=== PATIENT | female | born 1960 | race Caucasian/White ===

== ENCOUNTER 2019-05-20 22:09 | Emergency (ER) | payer OTHER, SELFPAY ==
[2019-05-20 22:10] VITALS: BP 141/85; PULSE 62; RESP 16; TEMP 36.7; O2SAT 100; BMI 20.2
[2019-05-20 22:36] LABS: Add Manual Diff / Slide Review NO; Basophils Absolute Auto 100 /uL (0-100); Basophils Percent Auto 1.3 % (0-2); Eosinophils Absolute Auto 200 /uL (0-450); Eosinophils Percent Auto 4.1 % (2-4); Hematocrit 42.7 % (36-46); Hemoglobin 14.5 g/dL (12.0-16.0); Lymphocytes Absolute Auto 1500 /uL (1100-4500); Mean Corpuscular HGB Conc 33.9 % (30-36); Mean Corpuscular Volume 94.6 fL (80-100); Monocytes Absolute Auto 400 /uL (0-900); Monocytes Percent Auto 8.4 % (3-14); Neutrophils Absolute Auto 2200 /uL (1500-7000); Neutrophils Percent Auto 51.2 % (50-75); Platelet Count 193 X10^3/uL (150-400); Red Blood Cell Count 4.52 X10^6/uL (4.0-5.2); Red Cell Distribution Width 12.5 % (11.6-14.8); White Blood Cell Count 4.3 X10^3/uL (4.5-11.0)
[2019-05-20] MEDS: SODIUM CHLORIDE 0.9% 1,000 ML 150 ML IV (22:39)
[2019-05-20 22:48] LABS: D Dimer < 200 ng/mL (<230)
[2019-05-20 22:49] LABS: Alanine Aminotransferase 41 IU/L (9-52); Albumin 4.6 g/dL (3.5-5.0); Albumin Globulin Ratio 1.6 (1.0-2.8); Alkaline Phosphatase 73 U/L (38-126); Aspartate Aminotransferase 33 IU/L (14-36); BUN Creatinine Ratio 24.3 (6-22); Bilirubin Total 0.5 mg/dL (0.2-1.3); Blood Urea Nitrogen 17 mg/dL (7-17); Calcium 9.8 mg/dL (8.4-10.2); Carbon Dioxide 28 mmol/L (22-32); Chloride 100 mmol/L (98-107); Creatine Kinase 124 U/L (30-135); Estimated Glomerular Filt Rate > 60.0 mL/min (>60); Globulin 2.8 g/dL (1.7-4.1); Glucose 90 mg/dL (80-110); HEMOLYSIS < 15 (0-50); Lipase 101 U/L (23-300); Potassium 4.1 mmol/L (3.4-5.1); Sodium 137 mmol/L (137-145); Total Protein 7.4 g/dL (6.3-8.2)
[2019-05-20 22:52] LABS: Bacteria Urine None Seen; WBC Urine None Seen (0-5/HPF)
--- NOTE | 2019-05-20 22:58 | ED_ITS ---
HPI - Chest Pain General Chief Complaint: Chest Pain Stated Complaint: chest pains, thinks galbladder Time Seen by Provider: 05/20/19 22:10 Source: patient Mode of arrival: ambulatory Limitations: no limitations History of Present Illness HPI narrative: 59-year-old female nonsmoker with very benign medical history p resents with a chief complaint of vague chest pain over the past 4 days. She denies provocation or palliation and states that she feels that on occasion the symptoms radiate up into her throat. She denies associated symptoms such as dizziness, weakness or lightheadedness. She denies any worsening of symptoms with exertion. She denies diaphoresis nor nausea or vomiting. She does have some tingling in her left arm. She denies any recent long distance travel, history of clot, injury or surgery. She denies any calf swelling, pain, redness. Patient is currently training for a marathon and never gets any of these symptoms with exertion. She did change her diet to include a higher fat content but is otherwise at her normal state of health and baseline. Patient was seen and evaluated by the paramedics on [facility] and encouraged to present here for evaluation MD complaint: chest pain Onset (ago): day(s) Duration: intermittent Pain location: substernal Severity: mild Quality: aching Pain radiation: neck Relieving factors: nothing Exacerbating factors: nothing Treatments prior to arrival chest pain: none Related Data On Oral Contraceptives: No Review of Systems Constitutional Denies chills, Denies fever(s), Denies lethargy and Denies weakness Eyes Denies change in vision, Denies eye discharge, Denies irritation and Denies loss of vision ENT Ears, Nose, Mouth, and Throat: Denies change in voice, Denies neck pain and Denies sore throat Cardiovascular Reports chest pain, Denies irregular heart rhythm, Denies lightheadedness, Denies palpitations, Denies dyspnea, Denies dyspnea on exertion and Denies orthopnea Respiratory Denies cough, Denies dyspnea, Denies dyspnea on exertion and Denies wheezing Gastrointestinal Gastrointestinal: Denies abdominal pain, Denies change in bowel habits, Denies diarrhea, Denies nausea and Denies vomiting Genitourinary Denies hematuria, Denies flank pain, Denies urinary incontinence and Denies urinary urgency Musculoskeletal Denies neck pain Integumentary/Breasts Denies pruritus, Denies erythema, Denies rash and Denies wounds Neurologic Denies confusion, Denies loss of vision and Denies weakness Psychiatric Denies anxiety, Denies confusion, Denies depression, Denies homicidal ideation and Denies suicidal ideation Endocrine Denies palpitations Hematologic/Lymphatic Denies easy bruising Allergic/Immunologic Denies wheezing PFSH Social History Smoking Status: Never smoker Social History Smoking Status: Never smoker Exam Narrative Exam Narrative: GENERAL: 59-year-old female appears stated age, in no obvious or significant distress HEAD: Atraumatic. Normocephalic. No temporal or scalp tenderness. EYES: Pupils equal round and reactive. Extraocular motions intact. No scleral i cterus. No injection or drainage. ENT: Nose without bleeding, purulent drainage or septal hematoma. Throat without erythema, tonsillar hypertrophy or exudate. Uvula midline. Airway patent. NECK: Trachea midline. No JVD or lymphadenopathy. Supple, nontender, no meningeal signs. CARDIOVASCULAR: Regular rate and rhythm without murmurs, gallops, or rubs. No pain with palpation RESPIRATORY: Clear to auscultation. Breath sounds equal bilaterally. No wheezes, rales, or rhonchi. GASTROINTESTINAL: Abdomen soft, non-tender, nondistended. No hepato- splenomegaly, or palpable masses. No guarding. EXTREMITIES: No clubbing, cyanosis, or edema. No joint tenderness, effusion, or edema noted. BACK: Nontender without deformity or crepitance. No flank tenderness. NEURO: AOx3. SKIN: No rash or erythema. Initial Vital Signs Initial Vital Signs: Vital Signs Temperature 98.0 F 05/20/19 22:10 Pulse Rate 62 05/20/19 22:10 Respiratory Rate 16 05/20/19 22:10 Blood Pressure 141/85 H 05/20/19 22:10 Pulse Oximetry 100 05/20/19 22:10 Scores HEART Score Heart Score history: Slightly Suspicious Heart Score EKG: Normal Heart Score Age: 45-64 years old Heart Score risk factors: No known risk factors Heart Score troponin: < or = to normal limit Heart Score Total: 1 Course Orders Ordered: ED Orders 05/20/19 22:10 EKG-12 Lead Stat 05/20/19 22:32 Urine Microscopic Stat 08/03/19 22:33 Complete Blood Count AUTO DIFF Stat Comprehensive Metabolic Panel Stat D Dimer Stat Lipase Stat Troponin & CK Cardiac Panel Stat 05/20/19 23:08 CT angio chest abdomen Stat Sodium Chloride (Normal Saline 0.9%) 1,000 mls @ 150 mls/hr IV CONT ADAL Last Admin: 05/20/19 22:39 Dose: 150 mls/hr Vital Signs - 8 hr 05/20/19 22:10 05/21/19 00:14 Temperature 98.0 F Pulse Rate 62 56 L Respiratory Rate 16 19 Blood Pressure 141/85 H Blood Pressure [Right Arm] 123/78 Pulse Oximetry 100 100 MDM - Chest Pain Lab Data Result diagrams: 05/20/19 22:33 05/20/19 22:33 Lab Results 05/20/19 05/20/19 05/20/19 Range/Units 22:32 22:33 22:33 WBC 4.3 L (4.5-11.0) X10^3/uL RBC 4.52 (4.0-5.2) X10^6/uL Hgb 14.5 (12.0-16.0) g/dL Hct 42.7 (36-46) % MCV 94.6 (80-100) fL MCH 32.0 (26-34) PG MCHC 33.9 (30-36) % RDW 12.5 (11.6-14.8) % Plt Count 193 (150-400) X10^3/uL Neut % (Auto) 51.2 (50-75) % Lymph % (Auto) 35.0 (25-40) % [place] % (Auto) 8.4 (3-14) % Eos % (Auto) 4.1 H (2-4) % Baso % (Auto) 1.3 (0-2) % Neut # (Auto) 2200 (5812-7639) /uL Lymph # (Auto) 1500 (1615-8591) /uL [place] # (Auto) 400 (0-900) /uL Eos # (Auto) 200 (0-450) /uL Baso # (Auto) 100 (0-100) /uL D-Dimer < 200 (<230) ng/mL Sodium (137-145) mmol/L Potassium (3.4-5.1) mmol/L Chloride (98-107) mmol/L Carbon Dioxide (22-32) mmol/L BUN (7-17) mg/dL Creatinine (0.52-1.04) mg/dL Estimated GFR (>60) mL/min BUN/Creatinine Ratio (6-22) Glucose (80-110) mg/dL Calcium (8.4-10.2) mg/dL Total Bilirubin (0.2-1.3) mg/dL AST (14-36) IU/L ALT (9-52) IU/L Alkaline Phosphatase (38-126) U/L Total Creatine Kinase (30-135) U/L CK-MB (CK-2) (<2.37) ng/mL CK-MB (CK-2) Rel Index (1.5-5.0) % Troponin I (0.01-0.034) ng/mL Total Protein (6.3-8.2) g/dL Albumin (3.5-5.0) g/dL Globulin (1.7-4.1) g/dL Albumin/Globulin Ratio (1.0-2.8) Lipase (23-300) U/L Urine RBC 1-5/hpf (0-5/HPF) Urine WBC None seen (0-5/HPF) Urine Bacteria None seen (None) Ur Culture Indicated? Cult not indicated 05/20/19 Range/Units 22:33 WBC (4.5-11.0) X10^3/uL RBC (4.0-5.2) X10^6/uL Hgb (12.0-16.0) g/dL Hct (36-46) % MCV (80-100) fL MCH (26-34) PG MCHC (30-36) % RDW (11.6-14.8) % Plt Count (150-400) X10^3/uL Neut % (Auto) (50-75) % Lymph % (Auto) (25-40) % [place] % (Auto) (3-14) % Eos % (Auto) (2-4) % Baso % (Auto) (0-2) % Neut # (Auto) (1960-3328) /uL Lymph # (Auto) (2043-8274) /uL [place] # (Auto) (0-900) /uL Eos # (Auto) (0-450) /uL Baso # (Auto) (0-100) /uL D-Dimer (<230) ng/mL Sodium 137 (137-145) mmol/L Potassium 4.1 (3.4-5.1) mmol/L Chloride 100 (98-107) mmol/L Carbon Dioxide 28 (22-32) mmol/L BUN 17 (7-17) mg/dL Creatinine 0.70 (0.52-1.04) mg/dL Estimated GFR > 60.0 (>60) mL/min BUN/Creatinine Ratio 24.3 H (6-22) Glucose 90 (80-110) mg/dL Calcium 9.8 (8.4-10.2) mg/dL Total Bilirubin 0.5 (0.2-1.3) mg/dL AST 33 (14-36) IU/L ALT 41 (9-52) IU/L Alkaline Phosphatase 73 (38-126) U/L Total Creatine Kinase 124 (30-135) U/L CK-MB (CK-2) 1.77 (<2.37) ng/mL CK-MB (CK-2) Rel Index 1.4 L (1.5-5.0) % Troponin I < 0.012 (0.01-0.034) ng/mL Total Protein 7.4 (6.3-8.2) g/dL Albumin 4.6 (3.5-5.0) g/dL Globulin 2.8 (1.7-4.1) g/dL Albumin/Globulin Ratio 1.6 (1.0-2.8) Lipase 101 (23-300) U/L Urine RBC (0-5/HPF) Urine WBC (0-5/HPF) Urine Bacteria (None) Ur Culture Indicated? Urine Dip Bedside Urine Glucose Negative Bedside Urine Bilirubin - Negative Bedside Urine Ketone ++ 40 Urine Specific [place] 1.015 Bedside Urine Occult Blood +/- Bedside Urine pH 6.0 Bedside Urine Protein - Negative Bedside Urine Urobilinogen +/- 1mg Bedside Urine Nitrite - Negative Bedside Urine Leukocytes - Negative Esterase Imaging Data CT scan - chest: Radiologist's impression: No PE No dissection Mild / Moderate colonic stool burden MDM Narrative Medical decision making narrative: [place] considered but thought less likely given lack of exertional worsening of symptoms, diaphoresis, nausea or vomiting. Additionally heart score is 1, it EKG shows no acute ischemic change. Pulmonary embolism considered but thought less likely given episodic symptoms, lack of shortness of breath, no considerations regarding Virchow's triad, and use of Rigoberto Chery's PE algorithm recommended no imaging after a normal D-dimer when age corrected Dissection consdiered, but thought less likely given episodes of pain, lack of severity at onset, no radiation, and no hx of HTN, in fact patient is hypotensive historically GB/liver/pancreatic disease considered, but thought less likely given description of symptoms. No provocation or palliation. Lack of reproducible pain on exam and no biochemical markers Extensive bedside discussions with the patient on multiple occasions. She has had her questions answered to her apparent satisfaction. Additionally, she has been given extensive return precautions and demonstrates her understanding of these precautions by her ability to verbalize them back to me. Discharge Plan Departure Patient Disposition: Home Clinical Impression: Atypical chest pain Instructions: DI for Atypical Chest Pain Activity Restrictions/Additional Instructions: *You have been diagnosed with [atypical chest pain. Heart attack blood clot, and dissection considered but all thought less likely given results of labs and imaging.] *What to do: *Take medications as directed *Follow up with your primary care provider in 2-3 days, call for an appointment. Let them know you were seen in the Emergency Department and that we ask that you be seen in follow up *Return to ER if you should have any new, worsening or concerning symptoms *Imaging does suggest a moderate amount of stool which can contribute to your symptoms. Please consider staying hydrated, eating foods high in fiber, and adding stool softeners and acid reducers to your regimen (pepcid, zantac, ne xium, etc.) Referrals: Bon Roche MD [Primary Care Provider] -
[2019-05-20 22:59] LABS: Culture Indicated Urine Cult Not Indicated; RBC Urine 1-5/HPF (0-5/HPF)
[2019-05-20 23:01] LABS: Troponin I < 0.012 ng/mL (0.01-0.034)
[2019-05-20 23:04] LABS: CKMB % Relative Index 1.4 % (1.5-5.0); Creatine Kinase MB 1.77 ng/mL (<2.37)
--- NOTE | 2019-05-20 23:08 | DI.CT.S_ITS ---
PROCEDURE: CT ANGIO CHEST ABDOMEN INDICATIONS: chest pain, radiation to arm, tingling in L arm TECHNIQUE: Precontrast 5 mm thick sections acquired from the lung apices to the iliac crests. After the administration of intravenous contrast, 2.5 mm thick sections again acquired from the lung apices to the iliac crests. 10 mm maximum intensity projection (MIP) oblique sagittal and coronal reformats were then acquired. For radiation dose reduction, the following was used: automated exposure control. COMPARISON: None. FINDINGS: Image quality: Excellent. AORTA: On precontrast imaging, no mural hematoma can be seen. The thoracic aorta, including the ascending aorta demonstrates normal caliber and the abdominal aorta is likewise unremarkable. No abnormalities of the iliac system detected. CHEST: Lungs and pleura: Mild dependent atelectasis can be seen. No pleural effusions or pneumothorax. Central and peripheral airways are patent and normal in caliber. Mediastinum: Heart size is normal. No pericardial effusion. No mediastinal or hilar adenopathy by size criteria. Central pulmonary arteries are normal in size. No filling defects are seen to suggest pulmonary embolism. Esophagus is normal in caliber. No hiatal hernias. Bones and chest wall: No axillary adenopathy by size criteria. Thyroid gland demonstrates no significant CT abnormality. No suspicious bony lesions. No vertebral body compression fractures. Mild levoconvex scoliotic curvature is noted. ABDOMEN: Vasculature: Celiac trunk and mesenteric arteries are patent. Renal arteries are also patent. Solid organs: Liver is normal in size and enhancement. Simple appearing liver cysts are seen. Gallbladder demonstrates gallstones within its lumen. Biliary system is non dilated. Pancreas enhances normally. Spleen is normal in size and enhancement. No adrenal nodules. Both kidneys are normal in size and enhancement, without hydronephrosis. Peritoneum and bowel: No free fluid or air. Bowel loops are normal in caliber and wall thickness. A moderate amount of stool can be seen within the colon. Nodes and vessels: No retroperitoneal or mesenteric adenopathy by size criteria. Inferior vena cava is normal in morphology. Bones: No suspicious bony lesions. No vertebral body compression fractures. A right-sided L5 pars defect is incidentally noted. Tarlov cysts are seen, at least at the S2 level. Miscellaneous: No ventral hernias. IMPRESSION: Negative study, without aneurysm or dissection. Negative for pulmonary embolism. There is a moderate amount of stool seen within the colon. Please correlate with an underlying history of constipation. Incidental note is made of: Gallstones Liver cysts Levoconvex scoliotic curvature Right-sided L5 pars defect Sacral Tarlov cysts. Note: No significant discrepancy from the preliminary report. Dictated by: Norman Tomlin M.D. on 05/21/2019 at 6:57 Approved by: Norman Tomlin M.D. on 05/21/2019 at 7:03
[2019-05-21 00:14] VITALS: BP 123/78; PULSE 56; RESP 19; O2SAT 100
[2019-05-21 01:36] VITALS: BP 122/90; PULSE 60; RESP 16; O2SAT 100
== END 2019-05-21 01:34 | disposition home or self-care (01) ==
PROVIDERS: Emergency Provider Emergency Medicine; PCP Family Medicine
DX: R07.89 Other chest pain (principal)
CPT/HCPCS: 36591; 71275; 74175; 80053; 81003; 81015; 82550; 82553; 83690; 84484; 85025; 85379; 93005; 96360; 96361; 99283; 99285; Q9967

== ENCOUNTER → 2021-10-02 09:52 | Outpatient (CLI) | payer OTHER, SELFPAY ==
--- NOTE | 2021-10-02 09:53 | DI.US.S_ITS ---
PROCEDURE: US CHEST COMPARISON: None. INDICATIONS: RIGHT PECTORALIS LUMP FINDINGS: There is a 6.3 x 2.0 x 6.0 centimeter isoechoic lesion in the upper right chest wall which corresponds to the clinically palpable lump. Lesion has imaging characteristics most suggestive of a lipoma. IMPRESSION: Probable 6.3 x 2.0 x 6.0 centimeter lipoma. Recommend correlation with clinical findings. If additional characterization is needed CT scan of the chest could be performed for further evaluation. Dictated by: Arlene Holden MD, PhD on 10/02/2021 at 12:12 Approved by: Arlene Holden MD, PhD on 10/02/2021 at 12:14
== END ==
PROVIDERS: PCP Physician Assistant; Referring Provider Physician Assistant; Visit Provider Physician Assistant
DX: R22.2 Localized swelling, mass and lump, trunk (principal)
CPT/HCPCS: 76604

== ENCOUNTER → 2022-02-12 08:03 | Outpatient (CLI) | payer OTHER, SELFPAY ==
[2022-02-12 18:45] LABS: Add Manual Diff / Slide Review NO; Basophils Absolute Auto 100 /uL (0-100); Basophils Percent Auto 1.3 % (0-2); Eosinophils Absolute Auto 200 /uL (0-450); Eosinophils Percent Auto 4.9 % (2-4); Hematocrit 45.4 % (36-46); Hemoglobin 15.1 g/dL (12.0-16.0); Lymphocytes Absolute Auto 1400 /uL (1100-4500); Lymphocytes Percent Auto 33.3 % (25-40); Mean Corpuscular HGB Conc 33.3 % (30-36); Mean Corpuscular Hemoglobin 31.6 PG (26-34); Mean Corpuscular Volume 94.9 fL (80-100); Monocytes Absolute Auto 400 /uL (0-900); Monocytes Percent Auto 10.1 % (3-14); Neutrophils Absolute Auto 2200 /uL (1500-7000); Neutrophils Percent Auto 50.4 % (50-75); Platelet Count 262 X10^3/uL (150-400); Red Blood Cell Count 4.79 X10^6/uL (4.0-5.2); Red Cell Distribution Width 13.3 % (11.6-14.8); White Blood Cell Count 4.3 X10^3/uL (4.5-11.0)
[2022-02-12 19:16] LABS: Alanine Aminotransferase 46 IU/L (<35); Albumin 4.7 g/dL (3.5-5.0); Albumin Globulin Ratio 1.7 (1.0-2.8); Alkaline Phosphatase 73 U/L (38-126); Aspartate Aminotransferase 46 IU/L (14-36); BUN Creatinine Ratio 23.2 (6-22); Bilirubin Total 0.6 mg/dL (0.2-1.3); Blood Urea Nitrogen 19 mg/dL (7-17); Calcium 9.7 mg/dL (8.4-10.2); Carbon Dioxide 28 mmol/L (22-32); Chloride 104 mmol/L (98-107); Cholesterol 249 mg/dL (140-199); Estimated Glomerular Filt Rate > 60 mL/min (>60); Globulin 2.8 g/dL (1.7-4.1); Glucose 97 mg/dL (80-110); HEMOLYSIS < 15 (0-50); Potassium 4.6 mmol/L (3.4-5.1); Sodium 141 mmol/L (137-145); Total Protein 7.5 g/dL (6.3-8.2); Triglycerides 60 mg/dL (35-150)
[2022-02-12 19:37] LABS: HDL Cholesterol 143 mg/dL (40-60); LDL Cholesterol Calculated 94 mg/dL (<100)
== END ==
PROVIDERS: PCP Physician Assistant; Visit Provider Physician Assistant
DX: E78.5 Hyperlipidemia, unspecified (principal)
CPT/HCPCS: 80053; 80061; 85025

== ENCOUNTER 2022-12-08 07:53 | Day surgery (SDC) | payer OTHER, SELFPAY ==
[2022-12-04 12:27] VITALS: BMI 21.6
--- NOTE | 2022-12-08 | PATH_ITS ---
[facility] Accession Number: [id number] No. of containers..01 Tissue . 01 Material submitted: . breast - RIGHT BREAST LIPOMA . 01 Diagnosis: Right Breast, Excisional Biopsy: Mature fibroadipose tissue, consistent with lipoma. [facility] 12/14/2022 1143 Local . 01 Electronically signed: . Gustavo Ibanez MD, Dermatopathologist NPI- [id number] . 01 Gross description: . Received in formalin labeled right breast lipoma is a 49-gram, 6.8 x 5.5 x 2.5 cm, ovoid, fragmented, portion of yellow-saab lobulated adipose tissue. Serial sections perpendicular to its long axis reveal a yellow-saab lobulated cut surface with few thin streaks of draper-white fibrous tissue. There are no areas of hemorrhage or necrosis identified. [employer] sections are submitted in A1-A3. ([id number]) /MRV 12/14/2022 1417 Local . 01 Pathologist provided ICD-10: D17.9 . 01 CPT . 205121 Specimen Comment: A courtesy copy of this report has been sent to [phone] Performed at: 01 [facility] [address] [place] [address], [place], [place] [id number] MD Jose Amezquita MD Phone: [phone]
[2022-12-08 09:08] VITALS: BP 116/75; PULSE 62; RESP 16; TEMP 36.7; O2SAT 100; BMI 21.6
--- NOTE | 2022-12-08 09:19 | PM.HP.1 ---
History of Present Illness History of Present Illness Date Patient Seen: 12/08/22 Time Patient Seen: 09:19 Chief complaint: MSC Narrative: Aster is a 62-year-old woman who has a lipoma in the right upper breast confirmed with ultrasound. She has decided she would like removed. Patient History Medical History Abrasion or friction burn of hand without infection Acute bronchitis, unspecified Annual physical exam Burn of first degree of unspecified upper arm, sequela Chicken pox Contusion of chest wall Cough Depression (~2000) Encounter for screening for colorectal malignant neoplasm Encounter for screening mammogram for malignant neoplasm of breast H/O gastroesophageal reflux (GERD) Injury of foot Neoplasm of unspecified behavior of bone, soft tissue, and skin Open wound of face Rosacea (~2012) Sciatica Sprain of neck Symptomatic menopausal or female climacteric states Unspecified conjunctivitis Vaginal discharge Surgical History Anesthesia History of knee surgery (~11/1992) Family & Social History Family History Father Cancer Mother Cancer History of heart disease Hyperlipidemia Brother Obesity Brother History of heart disease Drug addiction Hyperlipidemia Mental health problem COPD (chronic obstructive pulmonary disease) Family/Other Alopecia Tobacco & Substance use: Smoking Status Never smoker alcohol intake frequency 0-2 drinks per day Substance Use Type does not use Meds Home Medications and Allergies Home Medications Medication Instructions Recorded Confirmed Type clonazepam 0.5 mg tablet (Klonopin) 0.25 mg PO BEDTIME PRN insomnia 08/27/21 12/08/22 History and flying atorvastatin 20 mg tablet 20 mg PO DAILY #30 tabs 04/10/22 12/08/22 Rx bupropion HCl 150 mg tablet,12 hr 150 mg PO BID #60 ea 04/10/22 12/08/22 Rx sustained-release (Wellbutrin SR) Allergies Allergy/AdvReac Type Severity Reaction Status Date / Time No Known Drug Allergies Allergy Verified 12/08/22 09:00 Exam Narrative Exam Narrative: Right breast soft tissue mass proximally 4 cm in diameter Assessment & Plan Assessment and plan (1) Mass of chest wall, right: Status: Acute Plan Plan for excisional biopsy of right breast mass under sedation. We reviewed the risks and benefits and she would like to proceed. Time Spent With Patient Critical Care time: I spent a total of [] minutes of critical care time on this patient's care today; this time is exclusive of procedural time.
[2022-12-08] MEDS: LACTATED RINGERS 1,000 ML 42 ML IV (09:30)
--- NOTE | 2022-12-08 10:12 | SUR.OPER ---
Supine on padded OR bed, head on pillow, right arm padded and tucked at side, left arm extended <90 degrees with arm board. Gel pad under bilateral knees. Legs uncrossed, safety belt at thigh, tape over blanket over lower legs . Warm blankets placed across left arm, left chest, and lower torso to feet.
--- NOTE | 2022-12-08 10:14 | SUR.OPER ---
Glasses brought with patient to OR. Placed in glasses case with patient label and brought with patient to PACU.
[2022-12-08] MEDS: BUPIVACAINE 0.5% W/ EPI (PF) 30 ML VIAL INJ (10:29)
--- NOTE | 2022-12-08 10:37 | PM.OP.1 ---
Operative Date/Time/Diagnoses Date of procedure: 12/08/22 Time of procedure: 10:37 Pre-op diagnosis: Right breast lipoma Post-op diagnosis: same Procedure & Clinicians Procedure: Excisional biopsy of right breast lipoma Same procedure as scheduled: Yes Surgeon: Silas Marques Operative Notes Procedure in detail: The patient was brought to the operating room and placed on the table in the supine position with the right arm tucked. Sedation was administered. The right breast was prepped and draped in the usual fashion and a time-out was performed. We injected some local anesthetic and then made a 6 cm incision over the mass in a radial orientation. The lipomatous mass was very close to the dermis and was quite lobulated. We bluntly dissected the mass from the surrounding tissue with a finger and by spreading Metzenbaum scissors along with occasional cautery. The mass was about 6 cm x 5 cm x 5 cm and appeared to be a lipoma. We injected some local anesthetic into the muscle fascia and the surrounding tissue. We closed in layers using multiple interrupted 3-0 Vicryl sutures at the dermal level followed by a running 4-0 Monocryl subcuticular closure. EBL: 5 mL Post-operative Condition: stable Disposition: PACU
[2022-12-08 10:42] VITALS: BP 106/66; PULSE 62; RESP 16; TEMP 36.4; O2SAT 96
[2022-12-08 10:50] VITALS: BP 106/65; PULSE 74; RESP 22; O2SAT 96
== END 2022-12-08 11:06 | disposition home or self-care (01) ==
PROVIDERS: PCP Physician Assistant; Referring Provider Surgery; Visit Provider Surgery
PROC: (CPT 19120; principal; 2022-12-08 09:45)
DX: D17.1 Benign lipomatous neoplasm of skin and subcutaneous tissue of trunk (principal)
CPT/HCPCS: 19120; J2250; J2704

== ENCOUNTER → 2024-02-24 09:22 | Outpatient (CLI) | payer MEDICARE, SELFPAY ==
--- NOTE | 2024-02-24 | DI.RAD.S_ITS ---
PROCEDURE: XR DEXA AXIAL SKELETON INDICATIONS: Asymptomatic menopausal state COMPARISON: None. FINDINGS: Lumbar Spine: Bone mineral density 0.821 g/cm2, T score -2.1. Left Hip: Bone mineral density 0.888 g/cm2, T score -0.4. Left Femoral Neck: Bone mineral density is 0.714 g/cm2, T score -1.2. Right Hip: Bone mineral density 0.827 g/cm2, T score -0.9. Right Femoral Neck: Bone mineral density 0.667 g/cm2, T score -1.6. Fracture Risk Calculation (when applicable): 10-year fracture risk of a major osteoporotic fracture 8.3% and of a hip fracture 1.0%. (T score greater or equal to -1.0 to: NORMAL) (T score from -1.1 to -2.4: OSTEOPENIA) (T score less than or equal to -2.5: OSTEOPOROSIS) IMPRESSION: Osteopenia. Follow-up guidelines as follows: Osteoporosis: Consider a repeat DEXA and Vertebral Fracture Assessment (VFA) exam in 2 years or sooner if medically necessary, to reassess this patient's status. Osteopenia: Consider a repeat DEXA in 2-3 years to reassess this patient's status, or if there is a new clinical indication. Normal: Consider a repeat DEXA in 5 years or sooner, or if there is a new clinical indication. Dictated by: Shan Richey M.D. on 02/24/2024 at 12:28 Approved by: Shan Richey M.D. on 02/24/2024 at 12:30
== END ==
PROVIDERS: PCP Physician Assistant Medical; Referring Provider Internal Medicine; Visit Provider Internal Medicine
DX: Z13.820 Encounter for screening for osteoporosis (principal); M85.80 Other specified disorders of bone density and structure, unspecified site; Z78.0 Asymptomatic menopausal state
CPT/HCPCS: 77080

== ENCOUNTER 2025-07-07 09:34 | Emergency (ER) | payer MEDICARE, SELFPAY ==
[2025-07-07 09:43] VITALS: BP 140/74; PULSE 79; RESP 14; TEMP 36.6; O2SAT 99; BMI 21.9
--- NOTE | 2025-07-07 10:10 | DI.RAD.S_ITS ---
PROCEDURE: XR KNEE LT 3V INDICATIONS: running, felt snap, unable to bear weight TECHNIQUE: 3 views of the knee were acquired. COMPARISON: None. FINDINGS: Bones: No fractures or dislocations. No suspicious bony lesions. Prior ACL repair. Soft tissues: Small joint effusion IMPRESSION: Small joint effusion and prior ACL repair. Degenerative meniscal calcification. No fracture. Approved by: Florencio Vaz M.D. on 07/07/2025 at 9:53
--- NOTE | 2025-07-07 10:41 | ED.LOWEXIN ---
HPI - Extremity Injury (Lower) General Chief Complaint: Extremity Injury, Lower Stated Complaint: left leg injury during marathon today Time Seen by Provider: 07/07/25 10:22 Source: patient Mode of arrival: Wheelchair History of Present Illness HPI Narrative: Patient is a 65-year-old female generally healthy presenting today with severe left knee pain. She had just started her half marathon when 1 mile and she heard a pop. She had a limp over. She previously had an ACL repair back in 1992 in [place]. She has no numbness or tingling. It is hard for her to bear weight. She has actually been training for the [place] [employer]. Related Data Home Medications ?Medication ?Instructions ?Recorded ?Confirmed clonazepam 0.5 mg tablet (Klonopin) 0.25 mg PO BEDTIME PRN insomnia 08/27/21 07/26/24 and flying Previous Rx's ?Medication ?Instructions ?Recorded bupropion HCl 150 mg tablet,12 hr 150 mg PO BID #60 tabs 04/11/24 sustained-release prednisone 20 mg tablet 20 mg PO DAILY #5 tabs 07/28/24 clotrimazole-betamethasone 1 1 applic topical BID #15 grams 08/07/24 %-0.05 % topical cream hydrocortisone 0.5 % topical cream 1 applic topical BID PRN rash 08/07/24 #28.4 grams atorvastatin 40 mg tablet 40 mg PO DAILY #30 tabs 05/15/25 Allergies Allergy/AdvReac Type Severity Reaction Status Date / Time No Known Drug Allergies Allergy Verified 07/07/25 09:43 Patient History Medical History Chicken pox Laceration of finger of left hand Rosacea (~2012) Depression (~2000) Mass of chest wall, right Symptomatic menopausal or female climacteric states Unspecified conjunctivitis Annual physical exam Abrasion or friction burn of hand without infection Open wound of face H/O gastroesophageal reflux (GERD) Burn of first degree of unspecified upper arm, sequela Sciatica Vaginal discharge Injury of foot Sprain of neck Contusion of chest wall Neoplasm of unspecified behavior of bone, soft tissue, and skin Cough Acute bronchitis, unspecified Encounter for screening for colorectal malignant neoplasm Encounter for screening mammogram for malignant neoplasm of breast Surgical History Anesthesia History of knee surgery (~11/1992) Family History Father Cancer Mother Cancer History of heart disease Hyperlipidemia Brother Obesity Brother History of heart disease Drug addiction Hyperlipidemia Mental health problem COPD (chronic obstructive pulmonary disease) Family/Other Alopecia Social History household members: none Smoking Status: Never smoker Smoking Status: Never smoker alcohol intake frequency: 0-2 drinks per day Alcohol type: wine Exam Initial Vital Signs Initial Vital Signs: Vital Signs Temperature 97.8 F 07/07/25 09:43 Pulse Rate 79 07/07/25 09:43 Respiratory Rate 14 07/07/25 09:43 Blood Pressure 140/74 07/07/25 09:43 Pulse Oximetry 99 07/07/25 09:43 Oxygen Delivery Method Room Air 07/07/25 09:43 GENERAL: Alert well-appearing 65 CARDIOVASCULAR: peripheral pulses in tact, cap refill <2 sec RESPIRATORY: No respiratory distress, speaks in full sentences without difficulty EXTREMITIES: Normal range of motion, no clubbing or edema. Neurovascularly intact Left knee does feel slightly unstable prior surgery no significant swelling or erythema distal pedal pulse intact NEUROLOGICAL: Cranial nerves II through XII grossly intact. Normal gait and speech. SKIN: Warm, dry, no petechiae, no rashes or lesions. Course Orders Ordered: ED Orders 07/07/25 10:10 XR knee LT 3V Stat Discontinued Medications Acetaminophen (Acetaminophen 325 Mg Tablet) 650 mg PO NOW ONE Stop: 07/07/25 10:50 Last Admin: 07/07/25 10:57 Dose: 650 mg Documented By: KELLE Ibuprofen (Ibuprofen 400 Mg Tablet) 800 mg PO NOW ONE Stop: 07/07/25 10:50 Last Admin: 07/07/25 10:56 Dose: 800 mg Documented By: KELLE Vital Signs Vital signs: Vital Signs - 8 hr 07/07/25 09:43 Temperature 97.8 F Pulse Rate 79 Respiratory Rate 14 Blood Pressure 140/74 Pulse Oximetry 99 Oxygen Delivery Method Room Air MDM - Extremity Injury (Lower) Imaging Data Extremity x-ray #1: Radiologist's Impression: PROCEDURE: XR KNEE LT 3V INDICATIONS: running, felt snap, unable to bear weight TECHNIQUE: 3 views of the knee were acquired. COMPARISON: None. FINDINGS: Bones: No fractures or dislocations. No suspicious bony lesions. Prior ACL repair. Soft tissues: Small joint effusion IMPRESSION: Small joint effusion and prior ACL repair. Degenerative meniscal calcification. No fracture. Approved by: Florencio Vaz M.D. on 07/07/2025 at 9:53 MDM Narrative Medical decision making narrative: Patient is 65-year-old female presenting today with sudden onset left knee pain. She heard a pop x-ray is negative she has had a prior ACL repair. X-rays negative for fracture. She is given knee immobilizer crutches Tylenol and Motrin. Recommend ortho follow-up [facility] and needs probable MRI which is not indicated emergently today. Discharge Plan Departure Patient Disposition: Home Clinical Impression: Knee sprain Instructions: DI for Knee Sprain Activity Restrictions/Additional Instructions: *You have been diagnosed with knee sprain *What to do: At this time I do have suspicion that you tore possibly your ACL. You do need an MRI however it can not be done emergently today. Please call orthopedics 1st thing Wednesday morning to schedule follow up appointment and MRI Use crutches Wear knee brace while active and sleeping. May take off to be *Continue to take medications as directed Tylenol 650 mg every 4-6 hours for [id number] Motrin 600 mg every 6 hours for [id number] *Follow up with your primary care provider in 2-3 days or call [phone] *Return to ER if you should have increasing pain redness weak or any new, worsening or concerning symptoms Prescriptions: No Action bupropion HCl 150 mg tablet sustained-release 12 hr 150 mg PO BID Qty: 60 0RF clotrimazole-betamethasone 1-0.05 % cream 1 applic topical BID Qty: 15 0RF hydrocortisone 0.5 % cream 1 applic topical BID PRN (Reason: rash) Qty: 28.4 0RF atorvastatin 40 mg tablet 40 mg PO DAILY Qty: 30 0RF clonazepam [Klonopin] 0.5 mg tablet 0.25 mg PO BEDTIME PRN (Reason: insomnia and flying) Rx Instructions: administer 30 minutes before bedtime prednisone 20 mg tablet 20 mg PO DAILY Qty: 5 0RF Referrals: [facility] [Provider Group] Florencio Negrete MD [Physician, Orthopedic Surgery] Diana Grant PA-C [Primary Care Provider, Medical] Stand Alone Forms: Patient Portal/API
[2025-07-07] MEDS: IBUPROFEN 400 MG TABLET 800 MG PO (10:56)
[2025-07-07] MEDS: ACETAMINOPHEN 325 MG TABLET 650 MG PO (10:57)
== END 2025-07-07 11:41 | disposition home or self-care (01) ==
PROVIDERS: Emergency Provider Emergency Medicine; PCP Physician Assistant Medical
DX: S83.92XA Sprain of unspecified site of left knee, initial encounter (principal); X58.XXXA Exposure to other specified factors, initial encounter
CPT/HCPCS: 73562; 99283

== ENCOUNTER → 2025-07-13 07:08 | Outpatient (CLI) | payer MEDICARE, SELFPAY ==
--- NOTE | 2025-07-13 07:09 | DI.MRI.S_ITS ---
PROCEDURE: MR KNEE LT WO CON INDICATIONS: left knee instability. Hx left knee surgery TECHNIQUE: Noncontrast sagittal PD fast spin echo and T2 fast spin echo with fat saturation, sagittal 3-D FLASH with fat saturation; coronal T1 spin echo and PD fast spin echo with fat saturation, and axial PD fast spin echo with fat saturation through the knee. COMPARISON: [facility], CR, XR KNEE LT 3V, 07/07/2025, 10:10. FINDINGS: Image quality: Excellent. Menisci: Complex tear involving posterior horn of medial meniscus extending to both superior and inferior articulating surfaces. Oblique tear involving posterior horn of lateral meniscus extending to inferior articulating surface is seen. There is also horizontal oblique tear involving anterior horn of lateral meniscus extending to superior articulating surface. Cruciate ligaments: Patient is status post ACL reconstruction. ACL graft is intact. The PCL is intact. Medial structures: The medial collateral ligament appears thickened with intrasubstance T2 hyperintense signal and surrounding edema. Visualized portions of the pes anserinus tendons appear normal. No abnormal bursal fluid. Lateral structures: The lateral collateral ligament is thickened with subtle intrasubstance T2 hyperintense signal. The long and short heads of the biceps femoris tendon appear intact. The popliteus tendon appears intact. The Iliotibial band appears normal. Anterior structures: The quadriceps and patellar tendons appear intact. Patellar alignment is normal. Bones and cartilage: No abnormal anterior tibial translation. No signal abnormality is seen within the tibial tunnel or femoral tunnel. No bone marrow contusions or fractures. 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 Small osteochondral lesion is noted involving weight-bearing portion of lateral femoral condyle measures 3 mm in size. Joint space: There is small to moderate knee joint fluid. There is a small Wills's cyst measures up to 1.9 x 1.6 x 4.3 cm in size. Normal appearing synovial plicae are incidentally noted. IMPRESSION: 1. Prior ACL repair with postsurgical changes. No abnormal anterior tibial translation. No marrow edema. No acute fracture or dislocation. 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 Small to moderate joint effusion and a small Wills's cyst. No loose bodies. 2. Complex tear involving posterior horn of medial meniscus extending to both superior and inferior articulating surfaces. Subtle horizontal oblique tear involving anterior horn of lateral meniscus extending to superior articulating surface. Subtle oblique tear also seen involving posterior horn of lateral meniscus extending to inferior articulating surface. 3. Moderate grade intrasubstance partial-thickness tear involving medial collateral ligament. Low-grade LCL sprain. 4. ACL graft is intact. The PCL is intact. Dictated by: José Miguel Vaca M.D. on 07/13/2025 at 8:50 Approved by: José Miguel Vaca M.D. on 07/13/2025 at 8:55
== END ==
PROVIDERS: PCP Physician Assistant Medical; Referring Provider Physician Assistant; Visit Provider Physician Assistant
DX: S83.232A Complex tear of medial meniscus, current injury, left knee, initial encounter (principal); S83.282A Other tear of lateral meniscus, current injury, left knee, initial encounter; S83.412A Sprain of medial collateral ligament of left knee, initial encounter; S83.422A Sprain of lateral collateral ligament of left knee, initial encounter; S83.90XA Sprain of unspecified site of unspecified knee, initial encounter; M94.262 Chondromalacia, left knee; M25.362 Other instability, left knee; M17.12 Unilateral primary osteoarthritis, left knee; M25.462 Effusion, left knee; M71.22 Synovial cyst of popliteal space [Baker], left knee; X58.XXXA Exposure to other specified factors, initial encounter
CPT/HCPCS: 73721